=== PATIENT | male | born 1970 | race Caucasian/White ===

== ENCOUNTER 2021-10-30 14:02 | Emergency (ER) | payer OTHER, SELFPAY ==
[2021-10-30 14:06] VITALS: BP 158/91; PULSE 85; RESP 14; TEMP 36.5; O2SAT 98
--- NOTE | 2021-10-30 14:15 | ED.FALL ---
HPI - Fall General Chief Complaint: Fall Stated Complaint: L L STUMP OPEN AREA Time Seen by Provider: 10/30/21 14:07 Source: patient and RN notes reviewed History of Present Illness HPI Narrative: 51-year-old male presented to the emergency department for evaluation of a left stump injury. Patient reports that on October 13 he had his left lower leg amputated at the [facility]. Patient reports approximately 1 week ago he had a revision of the stump. Patient states today he was walking upstairs and his protector fell off. Patient states with his next step he slipped and opened the wound on his stump. Patient presented to the emergency department by ambulance. Patient denies any other pain or injury. Related Data Allergies Allergy/AdvReac Type Severity Reaction Status Date / Time No Known Allergies Allergy Verified 10/30/21 14:10 Review of Systems Review of Systems: CONSTITUTIONAL: Denies fever, chills, or sweats. EYES: Denies visual changes, redness, or discharge. ENT: Denies rhinorrhea, congestion, sore throat, or otalgia. CARDIOVASCULAR: Denies chest pain, palpitations, or edema. RESPIRATORY: Denies cough or dyspnea. GASTROINTESTINAL: Denies abdominal pain, nausea, vomiting, or diarrhea. GENITOURINARY: Denies dysuria or hematuria. SKIN: Injury to left stump MUSCULOSKELETAL: Denies back pain, joint pain, or myalgia. NEUROLOGIC: Denies headache, numbness, or weakness. Exam Narrative: APPEARANCE: Well appearing, no pain, no distress, well-nourished. HEAD: normocephalic, atraumatic. EYES: PERRLA/EOMI, conjunctivae clear. NOSE: Normal no drainage EARS:TMS clear with good light reflex. THROAT: Pharynx clear, no exudate. NECK: Supple. No adenopathy, no masses. RESPIRATORY: Airway patent, respirations nonlabored. Clear to auscultation bilaterally, no rales, rhonchi, wheezing. CARDIOVASCULAR: Regular rate and rhythm without murmurs rubs or gallops. ABDOMINAL: Soft, nontender, nondistended, normal bowel sounds MUSCULOSKELETAL: Moves all extremities. Strength/ROM intact, No edema, No calf tenderness. NEURO: Alert. Cranial nerves II through XII intact. Good gait. Good coordination SKIN: Dehiscence of the and incision on the proximal left stone. At least 7 cm of the laceration has dehisced. No active bleeding Course Course Emergency Course: Case was discussed with Dr Morales and Dr Briseno at [facility] and patient was accepted for transfer for anticipated debridement in the OR. Patient was accepted by the ER physician Dr. Briseno. Patient was updated on the plan for transfer. All question concerns were addressed. Prior to transfer patient was placed in a wet-to-dry dressing. Vital Signs Vital signs: Vital Signs Temperature 97.7 F 10/30/21 14:06 Pulse Rate 85 10/30/21 14:06 Respiratory Rate 14 10/30/21 14:06 Blood Pressure 158/91 H 10/30/21 14:06 Pulse Oximetry 98 10/30/21 14:06 Temperature 97.7 F 10/30/21 14:06 Pulse Rate 78 10/30/21 18:16 Respiratory Rate 14 10/30/21 18:16 Blood Pressure 132/80 10/30/21 18:16 Pulse Oximetry 99 10/30/21 18:16 Discharge Plan Discharge Clinical Impression: Dehiscence of wound Patient Disposition: Acute Care Hospital Condition: Stable Follow-up/Referrals: PHYSICIAN,FULL STACK DEVELOPER [Primary Care Provider] -
--- NOTE | 2021-10-30 15:03 | PC.NURSE ---
faxed request for pt. medical records
[2021-10-30 15:04] VITALS: RESP 14; O2SAT 98
[2021-10-30 15:06] VITALS: BP 120/80; PULSE 88; RESP 14; O2SAT 97
--- NOTE | 2021-10-30 16:04 | PC.NURSE ---
spoke w/ Gerardo at [facility] medical records. reports he will send pt. records right over.
--- NOTE | 2021-10-30 17:06 | PC.NURSE ---
per l[facility] are not allowed to take any transfer out of [place] [facility] even when they bought pt here natasha declined - no als transfer biju [facility] accepted ETA [id number] Trip # [id number]
[2021-10-30 17:21] VITALS: BP 120/80; PULSE 82; RESP 14; O2SAT 100
[2021-10-30 18:16] VITALS: BP 132/80; PULSE 78; RESP 14; O2SAT 99
== END 2021-10-30 18:20 | disposition short-term general hospital (02) ==
PROVIDERS: Emergency Provider Emergency Medicine
DX: T87.81 Dehiscence of amputation stump (principal)
CPT/HCPCS: 99285